=== PATIENT | male | born 1980 | race African-American/Black ===

== ENCOUNTER 2018-08-13 23:21 | Emergency (ER) | payer MEDICAID ==
[~2018-08-13] VITALS: Ht 185.4 cm; Wt 84.0 kg
[2018-08-14] MEDS ORDERED: ACETAMINOPHEN 325MG TABLET PO ONE (03:30)
[2018-08-14 05:47] VITALS: BP 132/78
== END 2018-08-14 05:50 | disposition home or self-care (01) ==
LOC: ER 23:21
DX: S63.502A Unspecified sprain of left wrist, initial encounter (principal); S09.8XXA Other specified injuries of head, initial encounter; M25.552 Pain in left hip; M79.642 Pain in left hand; F17.200 Nicotine dependence, unspecified, uncomplicated; V23.4XXA Motorcycle driver injured in collision with car, pick-up truck or van in traffic accident, initial encounter; Y93.89 Activity, other specified; Y92.488 Other paved roadways as the place of occurrence of the external cause; Z98.890 Other specified postprocedural states
CPT/HCPCS: 73110; 73130; 73502; 99284